=== PATIENT | female | born 1960 | race Caucasian/White ===

== ENCOUNTER → 2016-05-19 | Outpatient (CLI) | payer BC, OTHER ==
[~2016-05-19] MED LIST: APIX5TAB PO; CYCL10TA9 PO; ESTR1TAB24 PO; PRAV20TA3 PO; PROP225T PO
== END ==
LOC: PREOP 06:04
PROVIDERS: ATTEND Internal Medicine
DX: Z01.818 Encounter for other preprocedural examination (principal); Z12.11 Encounter for screening for malignant neoplasm of colon

== ENCOUNTER 2016-05-27 08:16 | Outpatient (CLI) | payer BC ==
[~2016-05-27] VITALS: Ht 172.7 cm; Wt 61.2 kg
[2016-05-27] MEDS ORDERED: PROP225T PO (13:57)
[2016-05-27] MEDS ORDERED: ESTR1TAB24 PO (13:57)
[2016-05-27] MEDS ORDERED: PRAV20TA3 PO (13:57)
[2016-05-27] MEDS ORDERED: APIX5TAB PO (13:57)
[2016-05-27] MEDS ORDERED: CYCL10TA9 PO (13:57)
== END 2016-05-27 14:12 ==
LOC: PREOP 08:16
PROVIDERS: ATTEND Internal Medicine
DX: Z01.818 Encounter for other preprocedural examination (principal); Z12.11 Encounter for screening for malignant neoplasm of colon

== ENCOUNTER 2016-05-31 10:13 | Day surgery (SDC) | payer BC ==
[~2016-05-31] VITALS: Ht 172.7 cm; Wt 61.2 kg
--- OUTSIDE RECORDS SUMMARY | 2016-05-31 10:17 | XMS REPORT | Continuity of Care Document ---
Author Author [facility] Organization [facility] Address Unknown Phone Unavailable Support Name Relationship Address Phone MICHAEL FLORES MD Caregiver Elizabeth [address]A, [address] [place] [address] Insurance Providers Payer Name Policy Number Subscriber Name Relationship [facility] [id number] Fadumo Carvalho 16 Self / Same As Patient Advance Directives Directive Response Recorded Date/Time Advance Directives No 05/27/16 1:48pm Resuscitation Status Full Code 05/27/16 1:48pm Problems No problem information available. Medications Current Home Medications Medication Dose Units Route Directions Days/Qty Instructions Start Date Propafenone Hcl 225 Mg 225 Mg Oral Three Times A Day 05/27/16 Pravastatin Sodium 20 Mg 20 Mg Oral Daily 05/27/16 Apixaban 5 Mg 5 Mg Oral Twice A Day 05/27/16 Cyclobenzaprine Hcl 10 Mg 10 Mg Oral Three Times A Day as needed for Muscle Spasms 05/27/16 Estradiol 1 Mg 1 Mg Oral Daily 05/27/16 Social History Social History Problem Response Recorded Date/Time Alcohol Use Denies Use 05/27/2016 1:48pm Recreational Drug Use No 05/27/2016 1:48pm Recent Foreign Travel No 05/27/2016 1:49pm Recent Infectious Disease Exposure No 05/27/2016 1:49pm Smoking Status Never a Smoker 05/27/2016 1:48pm Recent Hopitalizations No 05/27/2016 1:48pm Query Response Start Date Stop Date Smoking Status Never a Smoker Hospital Discharge Instructions No hospital discharge instructions. Plan of Care Discharge Date 05/27/16 2:12pm Prescriptions See Medication Section Functional Status No functional status results. Allergies, Adverse Reactions, Alerts No known allergies. Immunizations No immunization records. Vital Signs Acute Vital Signs Vital Response Date/Time Height (Feet) 5 feet 05/27/2016 1:50pm Height (Inches) 8.00 inches 05/27/2016 1:50pm Height (Calculated Centimeters) 172.963056 cm 05/27/2016 1:50pm Weight (Pounds) 135 pounds 05/27/2016 1:50pm Weight (Ounces) 0.0 oz 05/27/2016 1:50pm Weight (Calculated Grams) 43940.97 gm 05/27/2016 1:50pm Weight (Calculated Kilograms) 61.005457 kilograms 05/27/2016 1:50pm Calculated BMI 20.5 05/27/2016 1:50pm Results No known relevant diagnostic tests, laboratory data and/or discharge summary. Procedures No known history of procedures. Encounters Encounter Location Arrival/Admit Date Discharge/Depart Date Attending Provider Departed Clinic [facility] 05/27/16 8:16am 05/27/16 2: 12pm MICHAEL FLORES MD Registered Clinic [facility] 05/19/16 6:04am MICHAEL FLORES MD
--- OUTSIDE RECORDS SUMMARY | 2016-05-31 10:18 | XMS REPORT | Continuity of Care Document ---
Author Author [facility] Organization [facility] Address Unknown Phone Unavailable Support Name Relationship Address Phone MICHAEL FLORES MD Caregiver Elizabeth HUERTA, [address] [place] [address] Insurance Providers Payer Name Policy Number Subscriber Name Relationship [facility] [id number] Fadumo Carvalho 16 Self / Same As [...] 8.00 inches 05/27/2016 1:50pm Height (Calculated Centimeters) 172.664137 cm 05/27/2016 1:50pm Weight (Pounds) 135 pounds 05/27/2016 1:50pm Weight (Ounces) 0.0 oz 05/27/2016 1:50pm Weight (Calculated Grams) 69392.97 gm 05/27/2016 1:50pm Weight (Calculated Kilograms) 61.882626 kilograms 05/27/2016 1:50pm Calculated BMI 20.5 05/27/2016 1:50pm Results No known relevant diagnostic tests, laboratory data and/or discharge summary. Procedures No known history of procedures. Encounters Encounter Location Arrival/Admit Date Discharge/Depart Date Attending Provider Departed Clinic [facility] 05/27/16 8:16am 05/27/16 2: 12pm MICHAEL FLORES MD Registered Clinic [facility] 05/19/16 6:04am MICHAEL FLORES MD
[2016-05-31] MEDS ORDERED: 1/2 NS IV SOLUTION 1,000 ML IV ONE (10:20)
[2016-05-31] MEDS ORDERED: 1/2 NS IV SOLUTION 1,000 ML IV STA (10:49)
[2016-05-31 10:50] VITALS: BP 126/76
[2016-05-31] MEDS ORDERED: LIDOCAINE JELLY 2% (XYLOCAINE) 5 ML TUBE ONE (10:50)
[2016-05-31] MEDS ORDERED: fentaNYL INJECTION 100 MCG/2 ML AMP ONE ×2 (10:50)
[2016-05-31] MEDS ORDERED: MIDAZOLAM 2 MG/2 ML (VERSED) VIAL ONE ×2 (10:50)
--- NOTE | 2016-05-31 10:55 | Pre-Op Note & Conscious Sedat ---
Pre-Operative Progress Note H&P Reviewed The H&P was reviewed, patient examined and no changes noted. Date H&P Reviewed: May 31, 2016 Time H&P Reviewed: 10:54 Conscious Sedation Pre-Proced ASA Class: 1 Airway Mallampati Classification: (southern ute appropriate class) I. II. III, IV Lungs Heart ASA score ASA 1: a normal healthy patient ASA 2: a patient with a mild systemic disease (mid diabetes, controlled hypertension, obesity ASA 3: a patient with a severe systemic disease that limits activity (angina , COPD, prior Myocardial infarction) ASA 4: a patient with an incapacitating disease that is a constant threat to life (CHF, renal failure) ASA 5: a moribund patient not expected to survive 24 hrs. (ruptured aneurysm) ASA 6: a declared brain patient whose organs are being harvested. For emergent operations, add the letter E after the classification Grade 2 Sedation Plan: Analgesia, Amnesia, Plan communicated to team members, Discussed options with patient/fam, Discussed risks with patient/fam Note The patient is an appropriate candidate to undergo the planned procedure, sedation, and anesthesia. The patient immediately re-assessed prior to indication. MICHAEL FLORES MD May 31, 2016 10:55
[2016-05-31] MEDS: fentaNYL INJECTION 100 MCG/2 ML AMP IVP PRN ×2 (10:58→11:10)
[2016-05-31] MEDS ORDERED: LIDOCAINE JELLY 2% (XYLOCAINE) 5 ML TUBE MM PRN (11:00)
[2016-05-31] MEDS ORDERED: NALOXONE 0.4 MG/ML 1 ML (NARCAN) VIAL IVP PRN (11:00)
[2016-05-31] MEDS: MIDAZOLAM 2 MG/2 ML (VERSED) VIAL IVP PRN ×2 (11:00→11:05)
[2016-05-31] MEDS ORDERED: FLUMAZENIL (ROMAZICON) 0.1 MG/ML 5 ML VIAL INJ PRN (11:00)
[2016-05-31 11:30] VITALS: BP 116/70
[2016-05-31 12:00] VITALS: BP 124/78
[2016-05-31 12:08] VITALS: BP 124/78
--- NOTE | 2016-06-02 08:46 | PROCEDURE REPORT ---
PROCEDURE PHYSICIAN: MICHAEL FLORES DATE OF PROCEDURE: 05/31/2016 SCREENING COLONOSCOPY: PRIMARY CARE PHYSICIAN: Dr. Hubbard PROCEDURE: The patient was placed in the left lateral decubitus position. Prior to undergoing colonoscopy, digital rectal evaluation was performed. Anal sphincter tone was normal and the perianal reflex was intact. No abnormalities were noted to digital inspection of the anal canal or distal rectal vault. The colonoscope was then inserted into the rectum and under direct visualization, advanced to the cecum. The cecum was identified by identification of the ileocecal valve, cecal strap and appendiceal orifice. Photographic documentation was obtained. Careful inspection was made as the colonoscope was withdrawn. The patient tolerated the procedure well. FINDINGS: There was no evidence for internal or external hemorrhoids and the rectum was unremarkable. Several small to medium size sigmoid diverticulum were noted with some haustral hypertrophy involving the sigmoid colon. There was no evidence for diverticulitis to gross inspection. The descending colon, splenic flexure, transverse colon, hepatic flexure, ascending colon and cecum were unremarkable. No evidence for neoplasia was noted. ASSESSMENT: Mild to moderate diverticular disease confined to the sigmoid colon was present with an otherwise normal colonoscopy. The patient is not aware of any family history for colon cancer or polyps so would advocate consideration for repeat screening colonoscopy in 10 years. I thank you for the referral of this pleasant lady. Sincerely, Job ID: [id number] Dictated Date: 06/01/2016 11:53:54 [employer]ators Date: 06/02/2016 08:41:26 / veda
--- NOTE | 2016-06-04 09:53 | HISTORY AND PHYSICAL ---
DICTATING PHYSICIAN: Dr. Barboza DATE OF ADMISSION: 05/31/2016 Mrs. Sierra is a 55-year-old white female who referred by Dr. Hubbard for her first screening colonoscopy. She is deemed to be of average risk as she is not aware of any family history for colon cancer or colon polyps. She reports that she feels well. Denies chest pain, palpitations, shortness of breath. Weight has been stable with no bright red blood per rectum, melena, or bowel habit change. PAST MEDICAL HISTORY: 1. Significant for paroxysmal atrial fibrillation. She had been taking Eliquis for the past year seeing a [facility] angiography. They are considering switching her to aspirin as she has not had any recurrences on propafenone and is low risk. 2. She has no history of hypertension, previous CVA, TIA, diabetes with normal exercise capability and apparently no structural heart abnormalities, reportedly normal echocardiogram. 3. She is not aware of any family history for atrial fibrillation, stroke or vascular disease. FAMILY HISTORY: She has 2 living brothers in their 40s and 50s with no health problems. 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 No smoking history is noted. PAST SURGICAL HISTORY: Noncontributory. PHYSICAL EXAMINATION: Reveals a pleasant white female in no acute distress. She has some normal weight at 142.8, height of approximately 5'6". Blood pressure 128/70. CHEST: Clear. CV: Revealed a regular rate and rhythm without murmur, S3 or S4. ABDOMEN: Soft, supple without masses, organomegaly or tenderness. EXTREMITIES: Reveal no cyanosis, clubbing, or edema. HEENT EXAMINATION: Sclerae anicteric. She is a Mallampati class II oral configuration. The pharynx is clear without erythema. ASSESSMENT: The patient was set-up for her first screening colonoscopy on the . She is at low risk for thromboembolic disease with paroxysmal atrial fibrillation and was advised to hold Eliquis 48 hours prior to procedure scheduled for May 21. In answering her questions on evaluation 30 minutes of [id number] time was spent by myself with another 15 minutes of staff time going over prep instructions and setting up her procedure. I thank you for the referral of this pleasant lady. Sincerely, Job ID: [id number] Dictated Date: 05/04/2016 10:32:00 Processing Technologist Date: 05/05/2016 09:42:17/joi
== END 2016-05-31 12:20 | disposition home or self-care (01) ==
LOC: SDC 10:13
PROVIDERS: ATTEND Internal Medicine
DX: Z12.11 Encounter for screening for malignant neoplasm of colon (principal); K57.30 Diverticulosis of large intestine without perforation or abscess without bleeding